=== PATIENT | female | born 1995 | race Two or more races ===

== ENCOUNTER 2022-03-30 15:33 | Outpatient (CLI) | payer OTHER | END 2022-03-30 16:43 | disposition home or self-care (01) | LOC: PRENATAL 15:33 | PROVIDERS: ATTEND Obstetrics & Gynecology Maternal & Fetal Medicine | DX: O36.80X0 Pregnancy with inconclusive fetal viability, not applicable or unspecified (principal); O99.891 Other specified diseases and conditions complicating pregnancy; Z3A.15 15 weeks gestation of pregnancy ==

== ENCOUNTER 2024-06-17 18:22 | Emergency (ER) | payer OTHER ==
[~2024-06-17] VITALS: Ht 154.9 cm; Wt 56.2 kg
== END 2024-06-17 20:47 | disposition home or self-care (01) ==
LOC: ER 18:24
DX: R30.0 Dysuria (principal)